=== PATIENT | male | born 1970 | race Caucasian/White ===

== ENCOUNTER 2018-07-20 13:45 | Outpatient (RCR) | payer OTHER ==
[~2018-07-20 13:45] MED LIST: ACHD5005 PO; CYCL10TA9 PO
== END 2018-08-02 11:28 | disposition home or self-care (01) ==
PROVIDERS: ATTEND Family Medicine
DX: S39.012A Strain of muscle, fascia and tendon of lower back, initial encounter (principal); X50.0XXA Overexertion from strenuous movement or load, initial encounter